=== PATIENT | male | born 1990 | race Two or more races ===

== ENCOUNTER 2022-01-29 19:38 | Emergency (ER) | payer MEDICAID, OTHER ==
[~2022-01-29] VITALS: Ht 182.9 cm; Wt 90.7 kg
[2022-01-29] MEDS ORDERED: OXYCODONE W/ ACETAMINOPHEN 5/325MG TABLET PO ONE (21:00)
[2022-01-29] MEDS ORDERED: ONDANSETRON ODT 4 MG TAB PO ONE (21:00)
[2022-01-29 23:13] VITALS: BP 124/85
[2022-01-30] MEDS ORDERED: ONDA-144 PO (01:40)
[2022-01-30] MEDS ORDERED: PERCOT PO (01:40)
== END 2022-01-30 01:55 | disposition left against medical advice (07) ==
LOC: ER 19:38
DX: S29.011A Strain of muscle and tendon of front wall of thorax, initial encounter (principal); W22.8XXA Striking against or struck by other objects, initial encounter; Y93.89 Activity, other specified; Y92.89 Other specified places as the place of occurrence of the external cause; Y99.8 Other external cause status
CPT/HCPCS: 71045; 71250; 99284; Q0162